=== PATIENT | female | born 1985 | race Caucasian/White ===

== ENCOUNTER 2016-11-16 21:02 | Emergency (ER) | payer MEDICAID, OTHER ==
[~2016-11-16] VITALS: Ht 165.1 cm; Wt 82.5 kg
[2016-11-16 21:08] VITALS: Ht 165.1 cm; Wt 82.5 kg
[2016-11-16] MEDS ORDERED: HYDROCODONE/APAP (5/325) TAB PO ONE (21:30)
[2016-11-16] MEDS ORDERED: ONDANSETRON (ODT) 4 MG TAB ODT STA (22:37)
--- NOTE | 2016-11-16 22:39 | RADRPT ---
PROCEDURE: Ultrasound right upper quadrant. CLINICAL INDICATION: Epigastric pain TECHNIQUE: Ultrasound abdomen with focus of the right upper quadrant. COMPARISON: None. FINDINGS: Gallbladder unremarkable. No gallbladder wall thickening, with the wall measuring 3 mm. Common michael e duct is unremarkable measuring 3 mm. Right kidney measures 127 x 39 x 56 mm. No evident renal mass, hydronephrosis retained calculus. L iver measures 141 mm. IMPRESSION: No acute process in the right upper quadrant. RPTAT: [facility] Physician [place] Date Time Electronically viewed and signed by Troy Navas Physician on 11/16/2016 22:39 RS/
[2016-11-16 22:50] LABS: BASOPHIL # 0.1 10^3/ul (0.0-0.1); BASOPHILS % 0.4 % (0.0-2.0); EOSINOPHILS # 0.1 10^3/ul (0.0-0.5); EOSINOPHILS % 0.6 % (0.0-7.0); HEMATOCRIT 39.9 % (37.0-47.0); HEMOGLOBIN 13.2 g/dl (12.0-16.0); LYMPHOCYTES % 21.7 % (15.0-51.0); MEAN CORPUSCULAR HEMOGLOBIN 28.3 pg (29.0-33.0); MEAN CORPUSCULAR HGB CONC 33.1 g/dl (32.0-37.0); MEAN CORPUSCULAR VOLUME 85.5 fl (82.0-101.0); MEAN PLATELET VOLUME 7.4 fl (7.4-10.4); MONOCYTE # 0.8 10^3/ul (0.3-0.9); MONOCYTES % 5.6 % (0.0-11.0); NEUTROPHIL # 9.8 10^3/ul (1.6-7.5); NEUTROPHILS % 71.7 % (39.0-77.0); PLATELET COUNT 418 10^3/UL (140-440); RED BLOOD COUNT 4.67 10^6/ul (4.20-5.40); RED CELL DISTRIBUTION WIDTH 13.9 % (11.5-14.5); UNCORRECTED WBC 13.7 10^3/ul (4.8-10.8); WHITE BLOOD COUNT 13.7 10^3/ul (4.8-10.8)
--- NOTE | 2016-11-16 22:50 | ERD ---
ER Documentation Chief Complaint Date/Time DATE: 11/16/16 TIME: 22:48 Chief Complaint diffuse abd pain x 1 week HPI 31 year old female comes in with diffuse abdominal pain, localized more in epigastric region for the past week. She states that radiates to the right upper quadrant times, it is constant, moderate. She denies fever, chills, nausea , vomiting. ROS All systems reviewed and are negative except as per history of present illness. Medications Home Meds Active Scripts Ranitidine Hcl* (Zantac*) 150 Mg Tablet, 150 MG PO ONCE Y for EPIGASTRIC PAIN, # 30 TAB Prov:CLEM SMITH PA-C 11/16/16 Omeprazole* (Omeprazole*) 20 Mg Capsule.dr, 20 MG PO DAILY, #30 Prov:CLEM SMITH PA-C 11/16/16 Allergies Allergies: Coded Allergies: sulfamethoxazole (Verified Allergy, Unknown, 11/16/16) trimethoprim (Verified Allergy, Unknown, 11/16/16) PMhx/Soc Medical and Surgical Hx: pt denies Medical Hx, pt denies Surgical Hx History of Surgery: No Hx Alcohol Use: No Hx Substance Use: No Hx Tobacco Use: No Smoking Status: Never smoker Physical Exam Vitals Vital Signs Date Time Temp Pulse Resp B/P Pulse Ox O2 Delivery O2 Flow Rate FiO2 11/16/16 21:08 99.0 75 20 124/65 99 Physical Exam General: Well-developed, well-nourished. The patient appears in no acute distress. HEENT: Head is normocephalic, atraumatic. No scleral icterus. Pupils are equal , round, and reactive. Oral mucous membranes are moist. No pharyngeal erythema. Neck: Supple. Nontender. Lungs: Clear to auscultation. Normal air movement. Heart: Regular rate and rhythm. S1 and S2 are normal. No murmurs, gallops, or rubs. Abdomen: Soft, tenderness in the right upper quadrant as well as epigastric region nondistended. Bowel sounds are normoactive. Negative Mcallister sign, no McBurney's tenderness, no organomegaly. No peritoneal signs or guarding. Extremities: No clubbing or cyanosis. Normal pulses. Moving extremities x 4. No weakness. Neurologic: Alert and oriented 3. No focal deficits. Skin: Normal turgor. No rash or lesions. Result Diagram: 11/16/16221811/16/162218 Results 24 hrs Laboratory Tests Test 11/16/16 22:19 Alanine Aminotransferase (ALT/SGPT) 21IU/L Albumin 4.4g/dl Albumin/Globulin Ratio 1.04 Alkaline Phosphatase 76IU/L Anion Gap 17 Aspartate Amino Transf (AST/SGOT) 18IU/L Basophils # 0.110^3/ul Basophils % 0.4% Blood Morphology Comment Blood Urea Nitrogen 11mg/dl Calcium Level 8.9mg/dl Carbon Dioxide Level 26mmol/L Chloride Level 104mmol/L Creatinine 0.68mg/dl Direct Bilirubin 0.00mg/dl Eosinophils # 0.110^3/ul Eosinophils % 0.6% Globulin 4.20g/dl Glucose Level 89mg/dl Hematocrit 39.9% Hemoglobin 13.2g/dl Indirect Bilirubin 0.1mg/dl Lipase 121U/L Lymphocytes # 3.010^3/ul Lymphocytes % 21.7% Mean Corpuscular Hemoglobin 28.3pg Mean Corpuscular Hemoglobin Concent 33.1g/dl Mean Corpuscular Volume 85.5fl Mean Platelet Volume 7.4fl Monocytes # 0.810^3/ul Monocytes % 5.6% Neutrophils # 9.810^3/ul Neutrophils % 71.7% Nucleated Red Blood Cells # 0.010^3/ul Nucleated Red Blood Cells % 0.0/100WBC Platelet Count 10636^3/UL Potassium Level 3.9mmol/L Red Blood Count 4.6710^6/ul Red Cell Distribution Width 13.9% Sodium Level 143mmol/L Total Bilirubin 0.1mg/dl Total Protein 8.6g/dl Urine Bacteria RARE Urine Bilirubin NEGATIVE Urine Clarity CLEAR Urine Color LT. YELLOW Urine Glucose NEGATIVE% Urine Hemoglobin 2+ Urine Ketones NEGATIVE Urine Leukocyte Esterase NEGATIVE Urine Microscopic RBC 10-25/HPF Urine Microscopic WBC 0-2/HPF Urine Nitrite NEGATIVE Urine Test NEGATIVE Urine Specific [place]er 1.010 Urine Squamous Epithelial Cells FEW Urine Total Protein NEGATIVE Urine Urobilinogen 0.2 E.U./dL Urine pH 6.5 White Blood Count 13.710^3/ul Current Medications Medications (Trade) Dose Ordered Sig/Obey Route PRN Reason Start Time Stop Time Status Last Admin Dose Admin Acetaminophen/ Hydrocodone Bitart ([place] (5/325)) 1 tab ONCE ONCE PO 11/16/16 21:30 11/16/16 21:31 DC 11/16/16 22:35 Ondansetron HCl (Zofran Odt) 4 mg ONCE STAT ODT 11/16/16 22:37 11/16/16 22:38 DC 11/16/16 22:40 PROCEDURE: Ultrasound right upper quadrant. CLINICAL INDICATION: Epigastric pain TECHNIQUE: Ultrasound abdomen with focus of the right upper quadrant. COMPARISON: None. FINDINGS: Gallbladder unremarkable. No gallbladder wall thickening, with the wall measuring 3 mm. Common bile duct is unremarkable measuring 3 mm. Right kidney measures 127 x 39 x 56 mm. No evident renal mass, hydronephrosis retained calculus. Liver measures 141 mm. IMPRESSION: No acute process in the right upper quadrant. RPTAT: [facility] Physician Timur Date Time Electronically viewed and signed by Physician Timur on 11/16/2016 22:39 RS/ Procedures/MDM ED course: She was medicated with [place] in the emergency department. MDM: 31-year-old female comes with epigastric abdominal pain for one week, patient's differential diagnosis includes gastritis, GERD, pancreatitis, acute hepatobiliary process. She does not have any lower abdominal tenderness or signs of appendicitis. Gallbladder ultrasound was done secondary to her radiating pain to the right upper quadrant was unremarkable. She will be started on ranitidine and omeprazole, and was asked to follow-up with her insurance account representative within 1 week, for possible endoscopic evaluation to evaluate for gastritis versus GERD. She is well-appearing, vitals are stable without any signs of an acute or surgical abdomen and will be discharged home. Departure Diagnosis: Primary Impression: Abdominal pain Condition: CLEM Hayes PA-C Nov 16, 2016 22:49
[2016-11-16 22:51] LABS: CONDITION 1
[2016-11-16 22:57] LABS: ALBUMIN 4.4 g/dl (3.3-4.9); POTASSIUM 3.9 mmol/L (3.5-5.1)
[2016-11-16 23:00] LABS: ALBUMIN/GLOBULIN RATIO 1.04; BILIRUBIN,INDIRECT 0.1 mg/dl (0-1.1); BILIRUBIN,TOTAL 0.1 mg/dl (0.2-1.3); CALCIUM 8.9 mg/dl (8.4-10.2); CREATININE 0.68 mg/dl (0.44-1.00); TOTAL PROTEIN 8.6 g/dl (6.1-8.1)
[2016-11-16 23:13] LABS: ADD UMIC YES; URINE BILIRUBIN (Dip) NEGATIVE (NEGATIVE); URINE BLOOD (Dip) 2+ (NEGATIVE); URINE COLOR LT. YELLOW (YELLOW); URINE GLUCOSE (Dip) NEGATIVE (NEGATIVE); URINE KETONES (Dip) NEGATIVE (NEGATIVE); URINE LEUKOCYTE ESTERASE (Dip) NEGATIVE (NEGATIVE); URINE NITRITE (Dip) NEGATIVE (NEGATIVE); URINE TOTAL PROTEIN (Dip) NEGATIVE (NEGATIVE); URINE UROBILINOGEN (Dip) 0.2 E.U./dL (0.1-1.0)
[2016-11-16 23:26] LABS: SQUAMOUS EPITHELIAL CELL,UR FEW
[2016-11-16 23:27] LABS: BACTERIA,URINE RARE
[2016-11-16] MEDS ORDERED: RANI150T9 PO (23:51)
[2016-11-16] MEDS ORDERED: OMEP20CA16 PO (23:51)
[2016-11-17] MEDS ORDERED: SIME80TA6 PO (00:32)
== END 2016-11-17 00:31 | disposition home or self-care (01) ==
LOC: FTE 21:02
DX: R10.13 Epigastric pain (principal); R10.11 Right upper quadrant pain
CPT/HCPCS: 76705; 80053; 81001; 83690; 84703; 85025; Z7502; Z7610; 81003

== ENCOUNTER 2018-01-31 23:24 | Emergency (ER) | END 2018-02-01 03:01 | disposition home or self-care (01) ==